=== PATIENT | female | born 1970 | race American Indian/Alaskan Native ===

== ENCOUNTER 2017-09-12 19:15 | Inpatient (IN) | payer BC, OTHER ==
[2017-09-12 19:16] VITALS: BMI 22.0
[2017-09-12 20:09] LABS: RBC URINE 1 /hpf (0-3); URINE BILIRUBIN NEGATIVE (NEGATIVE); URINE BLOOD 1+ (NEGATIVE); URINE COLOR Yellow (YELLOW); URINE GLUCOSE (UA) 3+ mg/dL (Normal); URINE KETONE NEGATIVE (NEGATIVE); URINE LEUKOCYTE ESTERASE NEG Leu/uL (Negative); URINE PROTEIN NEGATIVE (NEGATIVE); WBC URINE 3 /hpf (0-5)
--- NOTE | 2017-09-12 21:07 | C.PDOC ---
History Of Present Illness Patient presents to the ER for a complaint of intermittent LLQ abdominal pain that occasionally radiates to her back over the last year. Patient was seen by PMD and SOUND ART INSTRUCTOR who have not found an etiology for her discomfort. Patient had a CT dont on 08/03/17 which showed evidence of diverticulosis and punctate nonobstructing bilateral renal calculi. Denies nausea, vomiting, or diarrhea. Time Seen by Provider: 09/12/17 21:05 Chief Complaint (Nursing): Abdominal Pain History Per: Patient History/Exam Limitations: no limitations Onset/Duration Of Symptoms: Days Current Symptoms Are (Timing): Still Present Severity: Mild Pain Scale Rating Of: 4 Location Of Pain/Discomfort: LLQ Radiation Of Pain To:: None Quality Of Discomfort: Unable To Describe Associated Symptoms: denies: Nausea, Vomiting, Diarrhea Exacerbating Factors: None Alleviating Factors: None Recent travel outside of the [place]: No Abnormal Vaginal Bleeding: No Past Medical History Reviewed: Historical Data, Nursing Documentation, Vital Signs Vital Signs: Last Vital Signs Temp 97.9 F 09/12/17 19:38 Pulse 87 09/12/17 19:38 Resp 20 09/12/17 19:38 BP 173/95 H 09/12/17 19:38 Pulse Ox 97 09/12/17 21:31 - Medical History PMH: Back Problems, Diabetes, HTN Surgical History: - [facility] Procedures CLOSED ENDOSCOPIC BIOPSY OF LARGE INTESTINE (11/12/14) ESOPHAGOGASTRODUODENOSCOPY [EGD] W/CLOSED BIOPSY (11/12/14) INJECT/INFUSE NEC (12/26/12) Family History: States: No Known Family Hx - Social History Hx Tobacco Use: No Hx Alcohol Use: No Hx Substance Use: No - Immunization History Hx Tetanus Toxoid Vaccination: No Hx Influenza Vaccination: Yes Hx Pneumococcal Vaccination: No Review Of Systems Constitutional: Negative for: Fever, Chills ENT: Negative for: Throat Pain Cardiovascular: Negative for: Chest Pain Respiratory: Negative for: Shortness of Breath Gastrointestinal: Positive for: Abdominal Pain. Negative for: Nausea, Vomiting , Diarrhea Genitourinary: Negative for: Dysuria Musculoskeletal: Negative for: Back Pain Skin: Negative for: Rash Neurological: Negative for: Weakness Psych: Negative for: Anxiety Physical Exam - Physical Exam Appears: Non-toxic, No Acute Distress Skin: Warm, Dry Head: Normacephalic Eye(s): bilateral: Normal Inspection Oral Mucosa: Moist Neck: Supple Chest: Symmetrical Cardiovascular: Rhythm Regular Respiratory: No Rales, No Rhonchi, No Wheezing Gastrointestinal/Abdominal: Soft, Tenderness (LLQ), No Guarding, No Rebound, Other (Morbidly obese) Back: Normal Inspection Extremity: Normal ROM Extremity: Bilateral: Atraumatic Pulses: Left Dorsalis Pedis: Normal, Right Dorsalis Pedis: Normal Neurological/Psych: Oriented x3 Gait: Steady ED Course And Treatment - Laboratory Results Result Diagrams: 09/12/17 21:20 09/12/17 21:20 O2 Sat by Pulse Oximetry: 97 (Room air) Pulse Ox Interpretation: Normal Progress Note: CT abd/pel, blood work, and urinalysis ordered. Reevaluation Time: 22:59 Disposition Discussed With : Andrea Quijano Comment: accepte the patient on his service and took over the care at 10:55 PM Doctor Will See Patient In The: Hospital Counseled Patient/Family Regarding: Studies Performed, Diagnosis - Disposition Disposition: HOSPITALIZED Disposition Time: 21:06 Condition: FAIR Forms: [facility] (Romansh) - POA Present On Arrival: Poor Glycemic Control - Clinical Impression Clinical Impression: Abdominal pain, Nausea - Scribe Statement The provider has reviewed the documentation as recorded by the Scribdesiree Waters All medical record entries made by the Scribe were at my direction and personally dictated by me. I have reviewed the chart and agree that the record accurately reflects my personal performance of the history, physical exam, medical decision making, and the department course for this patient. I have also personally directed, reviewed, and agree with the discharge instructions and disposition. Decision To Admit - Pt Status Changed To: Hospital Disposition Of: Inpatient - Admit Certification Admit to Inpatient:: After my assessment, the patient will require hospitalization for at least two midnights. This is because of the severity of symptoms shown, intensity of services needed, and/or the medical risk in this patient being treated as an outpatient. - InPatient: Physician Admission Certification:: After my assessment, the patient will require hospitalization for at least two midnights. This is because of the severity of symptoms shown, intensity of services needed, and/or the medical risk in this patient being treated as an outpatient. - . Bed Request Type: Regular Admitting Physician: Andrea Quijano Patient Diagnosis: Abdominal pain, Nausea
[2017-09-12] MEDS ORDERED: Iodixanol 320 mg/ml 150 ml Bottle IV ONE (21:24)
[2017-09-12 21:28] LABS: BASO % 0.6 % (0.0-2.0); EOS # 0.1 K/uL (0.0-0.7); EOS % 2.2 % (0.0-4.0); HEMATOCRIT 32.9 % (34.0-47.0); LYMPH # 2.5 K/uL (1.0-4.3); LYMPH % 42.6 % (20.0-40.0); MEAN CORPUSCULAR HEMOGLOBIN 27.4 pg (27.0-31.0); MEAN CORPUSCULAR HGB CONC 32.9 g/dL (33.0-37.0); MEAN PLATELET VOLUME 8.1 fL (7.2-11.7); MONO # 0.5 K/uL (0.0-0.8); WHITE BLOOD COUNT 5.9 K/uL (4.8-10.8)
[2017-09-12 21:35] LABS: MEAN CELL VOLUME 83.3 fL (81.0-99.0)
[2017-09-12 21:38] LABS: ALKALINE PHOSPHATASE 71 U/L (38-126); ALT/SGPT 35 U/L (9-52); AST/SGOT 19 U/L (14-36); BILIRUBIN,TOTAL 0.7 mg/dL (0.2-1.3); BLOOD UREA NITROGEN 11 mg/dL (7-17); CALCIUM 8.4 mg/dl (8.6-10.4); CARBON DIOXIDE 27 mmol/L (22-30); CHLORIDE 97 mmol/L (98-107); GFR AFRICAN-AMERICAN > 60; GLUCOSE,RANDOM 227 mg/dL (65-105); SODIUM 131 mmol/L (132-148)
[2017-09-12 21:46] LABS: ALB/GLOB RATIO 1.4 (1.0-2.1)
--- NOTE | 2017-09-12 22:45 | CT ---
EXAM: CT Abdomen and Pelvis With Intravenous Contrast CLINICAL HISTORY: 47 years old, female; Pain; Abdominal pain; Flank; Left lower quadrant (llq); Additional info: Llq abd pain TECHNIQUE: Axial computed tomography images of the abdomen and pelvis with intravenous contrast. All CT scans at this facility use one or more dose reduction techniques, viz.: automated exposure control; ma/kV adjustment per patient size (including targeted exams where dose is matched to indication; i.e. head); or iterative reconstruction technique. Coronal and sagittal reformatted images were created and reviewed. CONTRAST: 100 mL of VISIPAQUE 320 administered intravenously. COMPARISON: No relevant prior studies available. FINDINGS: Lower thorax: No acute findings. ABDOMEN: Liver: Unremarkable. No mass. Gallbladder and bile ducts: No calcified stones. No ductal dilation. Pancreas: No ductal dilation. No mass. Spleen: No splenomegaly. Adrenals: No mass. Kidneys and ureters: No mass. No hydronephrosis. Stomach and bowel: Apparent mild mural/fold thickening vs underdistention of few jejunal loops. No associated inflammatory stranding. No obstruction. Appendix: Normal caliber. No inflammation. PELVIS: Bladder: Unremarkable. Reproductive: Unremarkable as visualized. ABDOMEN and PELVIS: Intraperitoneal space: No significant fluid collection. No free air. Bones/joints: No acute fracture. Soft tissues: Tiny umbilical hernia containing fat. Vasculature: Minimal atherosclerotic disease. No aneurysm. Lymph nodes: No pathologically enlarged lymph nodes. IMPRESSION: 1. Possible mild enteritis. Clinical correlation is needed. 2. Incidental/non-acute findings are described above.
--- NOTE | 2017-09-12 23:35 | CP.PCM.HP ---
History of Present Illness - History of Present Illness History of Present Illness: Chief Complaint : Abdominal Pain HPI: Patient presents to the ER for a complaint of intermittent LLQ abdominal pain that occasionally radiates to her back over the last year. Patient was seen by PMD and ON CALL PHARMACY TECHNICIAN who have not found an etiology for her discomfort. Patient had a CT dont on 08/03/17 which showed evidence of diverticulosis and punctate nonobstructing bilateral renal calculi. Denies nausea, vomiting, or diarrhea. Present on Admission - Present on Admission Any Indicators Present on Admission: Yes Review of Systems - Review of Systems Systems not reviewed;Unavailable: Acuity of Condition - Constitutional Constitutional: absent: As Per HPI, Anorexia, Chills, Daytime Sleepiness, Excessive Sweating, Fatigue, Fever, Frequent Falls, Headache, Increased Appetite , Lethargy, Malaise, Night Sweats, Snoring, Sleep Apnea, Weight Gain, Weight Loss, Weakness, Other - EENT Eyes: absent: As Per HPI, Blind Spots, Blurred Vision, Change in Vision, Decreased Night Vision, Diplopia, Discharge, Dry Eye, Exophthalmos, Floaters, Irritation, Itchy Eyes, Loss of Peripheral Vision, Pain, Photophobia, Requires Corrective Lenses, Sees Flashes, Spots in Vision, Tunnel Vision, Other Visual Disturbances, Loss of Vision, Other Nose/Mouth/Throat: absent: As Per HPI, Epistaxis, Nasal Congestion, Nasal Discharge, Nasal Obstruction, Nasal Trauma, Nose Pain, Post Nasal Drip, Sinus Pain, Sinus Pressure, Bleeding Gums, Change in Voice, Dental Pain, Dry Mouth, Dysphagia, Halitosis, Hoarsness, Lip Swelling, Mouth Lesions, Mouth Pain, Odynophagia, Sore Throat, Throat Swelling, Tongue Swelling, Facial Pain, Neck Pain, Neck Mass, Other - Cardiovascular Cardiovascular: absent: As Per HPI, Acrocyanosis, Chest Pain, Chest Pain at Rest , Chest Pain with Activity, Claudication, Diaphoresis, Dyspnea, Dyspnea on Exertion, Edema, Irregular Heart Rhythm, Pain Radiating to Arm/Neck/Jaw, Leg Edema, Leg Ulcers, Lightheadedness, Orthopnea, Palpitations, Paroxysmal Nocturnal Dyspnea, Pedal Edema, Radiating Pain, Rapid Heart Rate, Slow Heart Rate, Syncope, Other - Respiratory Respiratory: absent: As Per HPI, Cough, Dyspnea, Hemoptysis, Dyspnea on Exertion , Wheezing, Snoring, Stridor, Pain on Inspiration, Chest Congestion, Excessive Mucous Production, Change in Mucous Color, Pain with Coughing, Other - Gastrointestinal Gastrointestinal: Abdominal Pain, Early Satiety, Loose Stools, Nausea - Genitourinary Genitourinary: absent: As Per HPI, Change in Urinary Stream, Difficulty Urinating, Dysuria, Flank Pain, Hematuria, Pyuria, Nocturia, Urinary Incontinence, Urinary Frequency, Urinary Hesitance, Urinary Urgency, Voiding Freq/Small Amts, Freq UTI, Hx Renal/Bladder Calculi, Hx /Renal Surgery, Bladder Distension, Other Past Patient History - Infectious Disease Hx of Infectious Diseases: None - Tetanus Immunizations Tetanus Immunization: Unknown - Past Medical History & Family History Past Medical History?: Yes - Past Social History Smoking Status: Never Smoked - CARDIAC Hx Hypertension: Yes - PULMONARY Hx Respiratory Disorders: No - NEUROLOGICAL Hx Neurological Disorder: No - HEENT Hx HEENT Problems: No - RENAL Hx Chronic Kidney Disease: No - ENDOCRINE/METABOLIC Hx Endocrine Disorders: Yes Hx Diabetes Mellitus Type 2: Yes - HEMATOLOGICAL/ONCOLOGICAL Hx Blood Disorders: No - INTEGUMENTARY Hx Dermatological Problems: No - MUSCULOSKELETAL/RHEUMATOLOGICAL Hx Musculoskeletal Disorders: No - GASTROINTESTINAL Hx Gastrointestinal Disorders: No - GENITOURINARY/GYNECOLOGICAL Hx Genitourinary Disorders: No - PSYCHIATRIC Hx Substance Use: No - SURGICAL HISTORY Hx Section: Yes Hx Dilation and Curettage: Yes - ANESTHESIA Hx Anesthesia: Yes Hx Anesthesia Reactions: No Hx Malignant Hyperthermia: No Meds Home Medications: Home Medication List Medication Instructions Recorded Confirmed Type Dicyclomine [Bentyl] 20 mg PO BID #20 tab 09/14/17 Rx Pantoprazole [Protonix Susp] 40 mg PO DAILY #30 packet 09/14/17 Rx metroNIDAZOLE [Flagyl] 500 mg PO Q8 #42 tab 09/14/17 Rx Allergies/Adverse Reactions: Allergies Allergy/AdvReac Type Severity Reaction Status Date / Time No Known Allergies Allergy Verified 09/12/17 19:43 Physical Exam - Constitutional Appears: No Acute Distress - Head Exam Head Exam: ATRAUMATIC, NORMAL INSPECTION, NORMOCEPHALIC - Eye Exam Eye Exam: EOMI, Normal appearance, PERRL Pupil Exam: NORMAL ACCOMODATION, PERRL - Respiratory Exam Respiratory Exam: Clear to Auscultation Bilateral, NORMAL BREATHING PATTERN - Cardiovascular Exam Cardiovascular Exam: REGULAR RHYTHM - GI/Abdominal Exam GI & Abdominal Exam: Normal Bowel Sounds, Soft. absent: Tenderness Results - Vital Signs Recent Vital Signs: Last Vital Signs Temp 98.7 F 09/12/17 22:59 Pulse 83 09/12/17 22:59 Resp 17 09/12/17 22:59 BP 117/77 09/12/17 22:59 Pulse Ox 97 09/12/17 23:00 - Labs Result Diagrams: 09/14/17 11:55 09/14/17 11:55 Labs: Laboratory Results - last 24 hr 09/12/17 09/12/17 09/12/17 20:03 21:20 21:20 WBC 5.9 RBC 3.95 Hgb 10.8 L Hct 32.9 L MCV 83.3 D MCH 27.4 MCHC 32.9 L RDW 14.0 Plt Count 322 MPV 8.1 Neut % (Auto) 46.6 L Lymph % (Auto) 42.6 H [place] % (Auto) 8.0 Eos % (Auto) 2.2 Baso % (Auto) 0.6 Neut # 2.8 Lymph # 2.5 [place] # 0.5 Eos # 0.1 Baso # 0.0 PT 10.9 INR 1.0 APTT 32 Sodium Potassium Chloride Carbon Dioxide Anion Gap BUN Creatinine Est GFR ( Amer) Est GFR (Non-Af Amer) Random Glucose Calcium Total Bilirubin AST ALT Alkaline Phosphatase Total Protein Albumin Globulin Albumin/Globulin Ratio Lipase Urine Color Yellow Urine Clarity Clear Urine pH 6.0 Ur Specific [place] 1.028 Urine Protein Negative Urine Glucose (UA) 3+ H Urine Ketones Negative Urine Blood 1+ H Urine Nitrate Negative Urine Bilirubin Negative Urine Urobilinogen 4.0 H Ur Leukocyte Esterase Neg Urine WBC (Auto) 3 Urine RBC (Auto) 1 Ur Squamous Epith Cells 1 Urine HCG, Qual Negative Serum Ketones 09/12/17 21:20 WBC RBC Hgb Hct MCV MCH MCHC RDW Plt Count MPV Neut % (Auto) Lymph % (Auto) [place] % (Auto) Eos % (Auto) Baso % (Auto) Neut # Lymph # [place] # Eos # Baso # PT INR APTT Sodium 131 L Potassium 4.0 Chloride 97 L Carbon Dioxide 27 Anion Gap 11 BUN 11 Creatinine 0.6 L Est GFR ( Amer) > 60 Est GFR (Non-Af Amer) > 60 Random Glucose 227 H Calcium 8.4 L Total Bilirubin 0.7 AST 19 ALT 35 Alkaline Phosphatase 71 Total Protein 6.0 L Albumin 3.5 Globulin 2.5 Albumin/Globulin Ratio 1.4 Lipase 108 Urine Color Urine Clarity Urine pH Ur Specific [place] Urine Protein Urine Glucose (UA) Urine Ketones Urine Blood Urine Nitrate Urine Bilirubin Urine Urobilinogen Ur Leukocyte Esterase Urine WBC (Auto) Urine RBC (Auto) Ur Squamous Epith Cells Urine HCG, Qual Serum Ketones Negative Assessment & Plan (1) Gastritis Status: Acute (2) Abdominal pain Status: Acute (3) Dizziness Status: Acute (4) Near syncope Status: Acute
[2017-09-13] MEDS ORDERED: Enoxaparin 40 mg Syringe SC SCH (10:00)
[2017-09-13] MEDS ORDERED: Peg-Electrolyte Oral Soln 4L (Golytely) PO ONE (14:00)
[2017-09-13] MEDS: (Novolin R) Insulin Human Regular 100 units/ml vial SC SCH ×2 (16:30→21:31)
[2017-09-13] MEDS ORDERED: Bisacodyl 5mg EC Tab PO ONE (17:00)
--- NOTE | 2017-09-13 23:11 | CP.PCM.PN ---
Subjective - Date & Time of Evaluation Date of Evaluation: 09/13/17 Time of Evaluation: 09:10 - Subjective Subjective: Pt was seen and evalauted at bedside this morning , no nausea, vomitting, pt is for colonoscopy and endoscopy Objective - Vital Signs/Intake and Output Vital Signs (last 24 hours): Temp Pulse Resp BP Pulse Ox 98.3 F 78 18 138/84 98 09/13/17 08:00 09/13/17 08:00 09/13/17 08:00 09/13/17 08:00 09/13/17 08:00 Intake and Output: 09/13/17 09/14/17 18:59 06:59 Intake Total 300 Balance 300 - Medications Medications: Current Medications Acetaminophen (Tylenol 325mg Tab) 650 mg PO Q4 PRN PRN Reason: Headache Last Admin: 09/13/17 19:07 Dose: 650 mg Enoxaparin Sodium (Lovenox) 40 mg SC DAILY COUNT INCLUDES THE [facility] Last Admin: 09/13/17 09:36 Dose: 40 mg Famotidine (Pepcid) 20 mg IVP Q12 COUNT INCLUDES THE [facility] Last Admin: 09/13/17 21:34 Dose: 20 mg Insulin Human Regular (Novolin R) 0 unit SC ACHS COUNT INCLUDES THE [facility] PRN Reason: Protocol Last Admin: 09/13/17 21:31 Dose: Not Given Losartan Potassium (Cozaar) 100 mg PO DAILY COUNT INCLUDES THE [facility] Last Admin: 09/13/17 09:36 Dose: 100 mg Metoclopramide HCl (Reglan) 5 mg IVP Q6 COUNT INCLUDES THE [facility] Last Admin: 09/13/17 17:25 Dose: 5 mg Morphine Sulfate (Morphine) 2 mg IVP Q4 PRN PRN Reason: Pain, moderate (4-7) Ondansetron HCl (Zofran Inj) 4 mg IVP Q4 PRN PRN Reason: Nausea/Vomiting Last Admin: 09/13/17 09:36 Dose: 4 mg - Labs Labs: 09/12/17 21:20 09/12/17 21:20 PT 10.9 SECONDS (9.7-12.2) 09/12/17 21:20 INR 1.0 09/12/17 21:20 APTT 32 SECONDS (21-34) 09/12/17 21:20 - Constitutional Appears: No Acute Distress - Head Exam Head Exam: ATRAUMATIC, NORMAL INSPECTION, NORMOCEPHALIC - Eye Exam Eye Exam: EOMI, Normal appearance, PERRL Pupil Exam: NORMAL ACCOMODATION, PERRL - Respiratory Exam Respiratory Exam: Clear to Ausculation Bilateral - Cardiovascular Exam Cardiovascular Exam: REGULAR RHYTHM, +S1, +S2. absent: Murmur - GI/Abdominal Exam GI & Abdominal Exam: Soft, Normal Bowel Sounds. absent: Tenderness - Rectal Exam Rectal Exam: Deferred Assessment and Plan (1) Abdominal pain Status: Acute (2) Nausea Status: Acute (3) Near syncope Status: Acute
[2017-09-14] MEDS: (Novolin R) Insulin Human Regular 100 units/ml vial SC SCH ×2 (07:24→12:29)
[2017-09-14] MEDS ORDERED: Propofol 10 mg/ml Inj (20 ML) ONE (10:08)
[2017-09-14 10:48] VITALS: TEMP 97.2; O2SAT 99
[2017-09-14 11:01] VITALS: RESP 15
[2017-09-14 11:14] VITALS: BP 145/89; PULSE 76
[2017-09-14 12:07] LABS: BASO % 0.4 % (0.0-2.0); EOS # 0.1 K/uL (0.0-0.7); EOS % 1.6 % (0.0-4.0); HEMATOCRIT 33.8 % (34.0-47.0); LYMPH # 1.7 K/uL (1.0-4.3); LYMPH % 42.4 % (20.0-40.0); MEAN CORPUSCULAR HEMOGLOBIN 27.4 pg (27.0-31.0); MEAN PLATELET VOLUME 7.9 fL (7.2-11.7); MONO # 0.3 K/uL (0.0-0.8); MONO % 7.6 % (0.0-10.0); NRBC % 0.1 % (0.0-2.0); RED CELL DISTRIBUTION WIDTH 13.7 % (11.5-14.5)
[2017-09-14 12:55] LABS: BLOOD UREA NITROGEN 8 mg/dL (7-17); CARBON DIOXIDE 26 mmol/L (22-30); CHLORIDE 99 mmol/L (98-107); GFR AFRICAN-AMERICAN > 60; GLUCOSE,RANDOM 168 mg/dL (65-105); POTASSIUM 3.7 mmol/L (3.6-5.2); SODIUM 132 mmol/L (132-148)
[2017-09-14 12:56] LABS: CALCIUM 8.1 mg/dl (8.6-10.4)
[2017-09-14] MEDS ORDERED: Belladonna-Phenobarbital PO SCH (14:00)
--- NOTE | 2017-09-14 14:59 | CP.PCM.PN ---
Subjective - Date & Time of Evaluation Date of Evaluation: 09/14/17 Time of Evaluation: 13:00 - Subjective Subjective: Pt seen today , states feels better, abdominal pain improved, denies any N/V/ , tolerating diet s/p colonoscopy - No bleeding external and internal hemorrhoids, moderate diverticulosis ( see full report for details) Objective - Vital Signs/Intake and Output Vital Signs (last 24 hours): Temp Pulse Resp BP Pulse Ox 97.2 F L 76 15 145/89 99 09/14/17 11:08 09/14/17 11:08 09/14/17 11:08 09/14/17 11:08 09/14/17 11:08 Intake and Output: 09/14/17 09/14/17 06:59 18:59 Intake Total 650 Balance 650 - Medications Medications: Current Medications Acetaminophen (Tylenol 325mg Tab) 650 mg PO Q4 PRN PRN Reason: Headache Last Admin: 09/14/17 01:01 Dose: 650 mg Belladonna/Phenobarbital () 1 tab PO TID [facility] Last Admin: 09/14/17 13:32 Dose: 1 tab Enoxaparin Sodium (Lovenox) 40 mg SC DAILY [facility] Last Admin: 09/13/17 09:36 Dose: 40 mg Famotidine (Pepcid) 20 mg IVP Q12 [facility] Last Admin: 09/14/17 10:15 Dose: Not Given Insulin Human Regular (Novolin R) 0 unit SC ACHS [facility] PRN Reason: Protocol Last Admin: 09/14/17 12:29 Dose: 2 unit Losartan Potassium (Cozaar) 100 mg PO DAILY [facility] Last Admin: 09/14/17 10:15 Dose: Not Given Metoclopramide HCl (Reglan) 5 mg IVP Q6 [facility] Last Admin: 09/14/17 12:29 Dose: 5 mg Metronidazole (Flagyl) 500 mg PO TID [facility] Last Admin: 09/14/17 13:32 Dose: 500 mg Morphine Sulfate (Morphine) 2 mg IVP Q4 PRN PRN Reason: Pain, moderate (4-7) Ondansetron HCl (Zofran Inj) 4 mg IVP Q4 PRN PRN Reason: Nausea/Vomiting Last Admin: 09/13/17 09:36 Dose: 4 mg - Labs Labs: 09/14/17 11:55 09/14/17 11:55 PT 10.9 SECONDS (9.7-12.2) 09/12/17 21:20 INR 1.0 09/12/17 21:20 APTT 32 SECONDS (21-34) 09/12/17 21:20 Assessment and Plan - Assessment and Plan (Free Text) Assessment: 47 yr old female admitted for LLQ abdominal pain s/p colonoscopy - non bleeding external and internal bleeding , moderate diverticulosi s labs WNL D/W Dr. beltran, cleared for discharge home today and f/u with Dr. beltran office in 1 week Discharge plan discussed with , who understands and agrees with plan
--- NOTE | 2017-09-14 23:18 | CP.PCM.DIS ---
Provider - Provider Date of Admission: 09/12/17 22:54 Attending physician: Andrea Quijano MD Time Spent in preparation of Discharge (in minutes): 45 Hospital Course - Lab Results Lab Results: Most Recent Lab Values WBC 4.0 K/uL (4.8-10.8) L 09/14/17 11:55 RBC 4.07 Mil/uL (3.80-5.20) 09/14/17 11:55 Hgb 11.2 g/dL (11.0-16.0) 09/14/17 11:55 Hct 33.8 % (34.0-47.0) L 09/14/17 11:55 MCV 83.0 fL (81.0-99.0) 09/14/17 11:55 MCH 27.4 pg (27.0-31.0) 09/14/17 11:55 MCHC 33.0 g/dL (33.0-37.0) 09/14/17 11:55 RDW 13.7 % (11.5-14.5) 09/14/17 11:55 Plt Count 323 K/uL (130-400) 09/14/17 11:55 MPV 7.9 fL (7.2-11.7) 09/14/17 11:55 Neut % (Auto) 48.0 % (50.0-75.0) L 09/14/17 11:55 Lymph % (Auto) 42.4 % (20.0-40.0) H 09/14/17 11:55 [place] % (Auto) 7.6 % (0.0-10.0) 09/14/17 11:55 Eos % (Auto) 1.6 % (0.0-4.0) 09/14/17 11:55 Baso % (Auto) 0.4 % (0.0-2.0) 09/14/17 11:55 Neut # 1.9 K/uL (1.8-7.0) 09/14/17 11:55 Lymph # 1.7 K/uL (1.0-4.3) 09/14/17 11:55 [place] # 0.3 K/uL (0.0-0.8) 09/14/17 11:55 Eos # 0.1 K/uL (0.0-0.7) 09/14/17 11:55 Baso # 0.0 K/uL (0.0-0.2) 09/14/17 11:55 PT 10.9 SECONDS (9.7-12.2) 09/12/17 21:20 INR 1.0 09/12/17 21:20 APTT 32 SECONDS (21-34) 09/12/17 21:20 Sodium 132 mmol/L (132-148) 09/14/17 11:55 Potassium 3.7 mmol/L (3.6-5.2) 09/14/17 11:55 Chloride 99 mmol/L (98-107) 09/14/17 11:55 Carbon Dioxide 26 mmol/L (22-30) 09/14/17 11:55 Anion Gap 11 (-20) 09/14/17 11:55 BUN 8 mg/dL (7-17) 09/14/17 11:55 Creatinine 0.7 mg/dL (0.7-1.2) 09/14/17 11:55 Est GFR ( Amer) > 60 09/14/17 11:55 Est GFR (Non-Af Amer) > 60 09/14/17 11:55 POC Glucose (mg/dL) 194 mg/dL (65-110) H 09/14/17 11:37 Random Glucose 168 mg/dL (65-105) H 09/14/17 11:55 Calcium 8.1 mg/dl (8.6-10.4) L 09/14/17 11:55 Total Bilirubin 0.7 mg/dL (0.2-1.3) 09/12/17 21:20 AST 19 U/L (14-36) 09/12/17 21:20 ALT 35 U/L (9-52) 09/12/17 21:20 Alkaline Phosphatase 71 U/L (38-126) 09/12/17 21:20 Total Protein 6.0 g/dL (6.3-8.3) L 09/12/17 21:20 Albumin 3.5 g/dL (3.5-5.0) 09/12/17 21:20 Globulin 2.5 gm/dL (2.2-3.9) 09/12/17 21:20 Albumin/Globulin Ratio 1.4 (1.0-2.1) 09/12/17 21:20 Lipase 108 U/L (23-300) 09/12/17 21:20 Urine Color Yellow (YELLOW) 09/12/17 20:03 Urine Clarity Clear (Clear) 09/12/17 20:03 Urine pH 6.0 (5.0-8.0) 09/12/17 20:03 Ur Specific [place] 1.028 (1.003-1.030) 09/12/17 20:03 Urine Protein Negative mg/dL (NEGATIVE) 09/12/17 20:03 Urine Glucose (UA) 3+ mg/dL (Normal) H 09/12/17 20:03 Urine Ketones Negative mg/dL (NEGATIVE) 09/12/17 20:03 Urine Blood 1+ (NEGATIVE) H 09/12/17 20:03 Urine Nitrate Negative (NEGATIVE) 09/12/17 20:03 Urine Bilirubin Negative (NEGATIVE) 09/12/17 20:03 Urine Urobilinogen 4.0 mg/dL (0.2-1.0) H 09/12/17 20:03 Ur Leukocyte Esterase Neg [place]/uL (Negative) 09/12/17 20:03 Urine WBC (Auto) 3 /hpf (0-5) 09/12/17 20:03 Urine RBC (Auto) 1 /hpf (0-3) 09/12/17 20:03 Ur Squamous Epith Cells 1 /hpf (0-5) 09/12/17 20:03 Urine HCG, Qual Negative (NEGATIVE) 09/14/17 06:58 Serum Ketones Negative (NEGATIVE) 09/12/17 21:20 - Hospital Course Hospital Course: 47 yr old female admitted for LLQ abdominal pain s/p colonoscopy - non bleeding external and internal bleeding , moderate diverticulosi s labs WNL Pt is cleared for discharge home today and f/u with me office in 1 week Discharge plan discussed with , who understands and agrees with plan Discharge Plan - Discharge Medications Prescriptions: Dicyclomine [Bentyl] 20 mg PO BID #20 tab metroNIDAZOLE [Flagyl] 500 mg PO Q8 #42 tab Pantoprazole [Protonix Susp] 40 mg PO DAILY #30 packet - Follow Up Plan Condition: FAIR Disposition: HOME/ ROUTINE Instructions: Dicyclomine (By mouth), Metronidazole (By mouth), Pantoprazole ( By mouth), Abdominal Pain (ED) Additional Instructions: Please f/u w ith Dr. Quijano office next week- call and make appointment Please continue medication as per Med. Rec. Referrals: Andrea Quijano MD [Staff Provider] -
--- NOTE | 2017-09-15 23:20 | CON ---
DATE: 09/13/2017 HISTORY OF PRESENT ILLNESS: I was called for a GI consultation by the admitting medical team. The patient is seen and fully examined on 09/13/2017 as requested by the admitting MD. The entire chart is reviewed including but not limited to the most recent lab and radiology study results, current and previous medication list, current and the previous medical events, allergy to medication list, as well as all the available current and the previous medical records. Case discussed at length with the admitting MD as well as the medical staff. This is a 47-year-old female, who was admitted to the hospital through the emergency room due to severe abdominal pain radiating to the back on and off with generalized weakness and malaise with a recent evidence of *------* with possible bilateral renal nonobstructive stones. No reported hematemesis, but occasional postprandial abdominal distention with increased gas production as well as recent history of body weight loss. PAST MEDICAL HISTORY: Including, but not limited to: 1. Hypertension. 2. Diabetes mellitus. 3. Chronic lower back pain syndrome. 4. Peptic ulcer disease. 5. Status post C section. FAMILY HISTORY: Unknown. SOCIAL HISTORY: No known history of cigarette smoking or alcohol intake recently. CURRENT MEDICATIONS: Medication list was reviewed. ALLERGIES TO MEDICATIONS: UNCLEAR. PHYSICAL EXAMINATION: GENERAL: A 47-year-old female, appears to be awake, alert, oriented. VITAL SIGNS: Afebrile at the time she was seen by me with pulse of 84, respiratory rate 20-22, and blood pressure 168/86. HEENT: Showed pale, dry oral mucoid membrane. Anicteric sclerae. LUNGS: Few scattered crepitation. Decreased air entry at the bases. HEART: Positive S1 and S2. ABDOMEN: Soft with [id number] distention with generalized tenderness, but mainly in the lower quadrant areas. No mass or organomegaly. No rebound tenderness or guarding. RECTAL: The patient refused. EXTREMITIES: Without significant edema, clubbing, or cyanosis. NEUROLOGIC: No reported new neurological deficits, sensory or motor. LABORATORY DATA: After being admitted to the hospital, initial blood workup showed low hemoglobin of 10.8, hematocrit 32.9 with low sodium of 131 and increased blood glucose level to 227. IMPRESSION: 1. Re-exacerbation of peptic ulcer disease. 2. Diverticulosis with possible early phase of diverticulitis. 3. Anemia, rule out gastrointestinal bleeding, upper versus lower versus occult gastrointestinal malignancies. 4. Known history but not limited to hypertension, status post section with possible intrapelvic and intra-abdominal adhesions. 5. Poorly controlled diabetes mellitus. 6. Known history of chronic lower back pain syndrome. SUGGESTIONS: 1. Agree with your plan. 2. IV Flagyl. 3. Guaiac all the stool q.d. x3. Proton pump inhibitors. 4. Cancer markers including CEA. 5. tablet one twice a day. 6. Bentyl 20 mg one tablet twice a day. 7. Further recommendations to follow and endoscopic evaluation of the upper and lower GI tract to be kept in mind after adequate preparation. Thank you for letting me participate in your patient's case management. We will follow up closely with you. Mariely Guallpa MD cc: Andrea Quijano MD
== END 2017-09-14 17:32 | disposition home or self-care (01) | DRG 392 ==
LOC: C.ER 19:15 → C.9E 22:54 → C.3T 09-13 09:15
PROVIDERS: ADMIT Internal Medicine; ATTEND Internal Medicine
PROC: 0D968ZX Drainage of Stomach, Via Natural or Artificial Opening Endoscopic, Diagnostic (ICD-10-PCS; principal; 2017-09-14 10:15)
PROC: 0DDG8ZX Extraction of Left Large Intestine, Via Natural or Artificial Opening Endoscopic, Diagnostic (ICD-10-PCS; 2017-09-14 10:15)
DX: K29.00 Acute gastritis without bleeding (principal); E11.65 Type 2 diabetes mellitus with hyperglycemia; K27.9 Peptic ulcer, site unspecified, unspecified as acute or chronic, without hemorrhage or perforation; I10 Essential (primary) hypertension; K64.1 Second degree hemorrhoids; K57.90 Diverticulosis of intestine, part unspecified, without perforation or abscess without bleeding; K21.0 Gastro-esophageal reflux disease with esophagitis; K44.9 Diaphragmatic hernia without obstruction or gangrene; K64.8 Other hemorrhoids; Z68.37 Body mass index [BMI] 37.0-37.9, adult; N20.0 Calculus of kidney; D64.9 Anemia, unspecified; G89.29 Other chronic pain; R63.4 Abnormal weight loss